=== PATIENT | female | born 1980 | race Caucasian/White ===

== ENCOUNTER 2022-12-12 10:10 | Day surgery (SDC) | payer MEDICAID, SELFPAY ==
--- NOTE | 2022-12-12 | CALC_PTH ---
PATIENT: ANNY HANSEN LOC: [facility] [place] U#:[id number] AGE/SX: 42/F ROOM: RE12/12/[address]: Dr. Rosita Zapata MD : [id number] BED: DIS: 12/12/2022 SPEC #: [id number] RECD: 12/12/22 13:55 STATUS: ZAHRA AMINA #: [id number] ANA: 12/12/22 00:[address]: Rosita Zapata DEPT: SURGICAL PATHOLOGY RECD BY: Grady Hicks ENTERED: 12/12/22 13:56 SP TYPE: Calculi OTHR DR: No Primary Care Phys Tissues: CALCULI Procedures: Surgery Specimen Level I HEADER OPERATION: Cysto, right ureteroscopy, stone basket extraction PRE-OP DIAGNOSIS: Right ureteral stent TISSUE SUBMITTED: Right ureteral stone GROSS DIAGNOSIS A fragment of stone, clinically right ureteral stone. See comment. KYLER:jaymie 12/13/2022 COMMENT The calculus is submitted in its entirety for chemical stone analysis. The results from this study will be reported separately. GROSS DESCRIPTION Received without fixative labeled with the patient's name and designated right ureteral stone. The specimen consists of a fragment of arrieta-brown stone measuring 0.3 x 0.3 x 0.2 cm. The entire specimen is submitted for stone analysis. / SJ:jaymie 12/12/2022 CPT: 14875
[2022-12-12 10:31] VITALS: BP 133/87; PULSE 92; RESP 18; TEMP 36.4; O2SAT 100; BMI 29.2
[2022-12-12] MEDS: Lactated Ringers 1,000 ML 15 ML IV ×2 (10:38→13:30)
[2022-12-12] MEDS: Cefazolin 2 GM in 0.9% Normal Saline 100 ML IV (12:57)
[2022-12-12 13:34] VITALS: BP 105/77; BP 133/87; PULSE 75; RESP 16; TEMP 36.2; O2SAT 97
--- NOTE | 2022-12-12 13:38 | OP.PCM_ITS ---
Report of Operation Date of Procedure: 12/12/22 Pre-Operative Diagnosis: Right ureteral and renal calculi Post-Operative Diagnosis: Same Surgery/Procedure Performed:: Cystoscopy, right ureteroscopy, stone basket extraction, right ureteral stent change Surgeon: Rosita Zapata Type of Anesthesia: General Specimen's removed: Right ureteral calculus Description of Procedure: The patient is a 42-year-old female who came to the office with an indwelling stent secondary to a right ureteral calculus that was passing [place]. Informed consent was obtained. She now presents for surgical intervention for her stone. The patient was taken to the operating room and placed on the operating room table. Anesthesia monitored the head, neck, airway, IV access and vital signs throughout the case. Once anesthesia was appropriately administered, the patient was placed into dorsolithotomy position was prepped and draped in usual sterile fashion. The cystoscope was inserted through the urethra and under direct visualization into the urinary bladder. The indwelling stent appeared to be calcified. The remainder of the cystoscopy was normal. A 0.035 Glidewire was inserted alongside the stent which was then removed with graspers. Using a SlimLine ureteroscope, access was obtained to the distal right ureter and the scope was easily advanced. The stone was identified almost embedded into the ureter in the area of the mid ureter. The stone was grasped with a stone basket and removed without difficulty and sent for analysis. A second 0.035 Glidewire was then inserted. The flexible ureteroscope was placed over that Glidewire and the ureteroscope easily advanced into the renal pelvis. Each of the calyces were directly visualized and no 3 mm stone was identified. However there were stony fragments likely from the stent and a blood clot that was removed. There were no further stone fragments identified. At this time the cystoscope was used for placement of a 4.5 Green[place]ic 26 cm JJ stent with good positioning in the renal pelvis as well as the urinary bladder. The patient's bladder was then emptied and the case was terminated. She was awakened and taken to the recovery room in good condition. There were no complications during this procedure. Grafts/Implants Used: 4.5 x 26 cm JJ stent Complications None Admit VTE Documentation VTE Present on Admission: Yes VTE Mechan Device Prophylaxis: SCD's VTE Pharm Prophylaxis ordered?: No Reason prophylaxis not ordered:: Treatment Not Indicated
--- NOTE | 2022-12-12 13:41 | DCINST_ITS ---
Discharge Instructions Diet Discharge Diet: No restrictions Activity Discharge Activity: Return to Normal Activity Dressing / Incision Call your doctor if you observe: Fever of 101 or Higher, Inability to urinate and Inability to have a bowel movement Follow Up Care Please Follow Up With: Rosita Zapata MD When: The office will call the patient for arrangements for an appointment with cystoscopy and stent removal next week Test Results: Test results from this visit will be discussed in further detail at your follow- up appointment, if applicable. Discharge Plan Admission Attending Provider: Rosita Zapata Primary Care Provider: Care Physician,Karen Primary Discharge Orders/Prescriptions Prescriptions: New oxycodone-acetaminophen [Percocet] 5-325 mg tablet 1 tab PO Q8H PRN (Reason: pain) 3 Days Qty: 10 0RF Continued cephalexin 500 mg capsule 500 mg PO Q12H Referrals / Follow Up: Care Physician,Karen Primary [Primary Care Provider] - Disposition Disposition (needs filled in before D/C Order can be placed): Home, Self Care
[2022-12-12 13:45] VITALS: BP 103/78; BP 133/87; PULSE 88; RESP 16; O2SAT 96
[2022-12-12 14:00] VITALS: BP 120/80; BP 133/87; PULSE 88; RESP 16; TEMP 36.3; O2SAT 96
[2022-12-12 14:42] VITALS: BP 133/87
[2022-12-20 16:30] LABS: Source Right Ureter
== END 2022-12-12 15:01 | disposition home or self-care (01) ==
LOC: SDC 10:12 → AC 10:14
PROVIDERS: Referring Provider Urology; Visit Provider Urology
PROC: 0TJ98ZZ Inspection of Ureter, Via Natural or Artificial Opening Endoscopic (ICD-10-PCS; CPT 52352; principal; 2022-12-12 11:45)
DX: N20.2 Calculus of kidney with calculus of ureter (principal); F17.200 Nicotine dependence, unspecified, uncomplicated
CPT/HCPCS: 52356; 00873; 76000; 82360; 88300; J7120; J2405